=== PATIENT | male | born 1955 | race Caucasian/White ===

== ENCOUNTER 2025-01-12 19:37 | Emergency (ER) | payer MEDICARE ==
[~2025-01-12] VITALS: Ht 182.9 cm; Wt 95.3 kg
[2025-01-12 19:40] VITALS: TEMP 98.3
[2025-01-12 20:00] LABS: BASOPHILS % 0.1 % (0.0-1.0); EOSINOPHILS % 1.3 % (0.0-6.0); LYMPHOCYTES % 13.5 % (18.0-39.1); MONOCYTES % 6.2 % (4.4-11.3); NEUTROPHILS % 78.6 % (38.7-80.0); RED CELL DISTRIBUTION WIDTH 12.7 % (11.7-14.4)
[2025-01-12 20:16] LABS: INR 0.74
[2025-01-12 20:28] LABS: EST GLOMERULAR FILTRATION RATE 68.0 ML/MIN (>=60)
[2025-01-12 23:20] VITALS: PULSE 94; RESP 20
[2025-01-13] MEDS: ONDANSETRON HCL INJ 2MG/ML 2ML 2 MG/ML VIAL IV STA (00:27)
[2025-01-13] MEDS: HYDRALAZINE HCL 20 MG/ML VIAL IV ONE (00:28)
[2025-01-13] MEDS: Morphine 2mg Syringe 2 MG/ML SYR IV ONE (00:29)
[2025-01-13 01:54] VITALS: BP 158/81; PULSE 78; O2SAT 97
[2025-01-13] MEDS ORDERED: IOPAMIDOL 370 MG/ML 100 ML INFUS..BTL INJ ONE (06:46)
== END 2025-01-13 01:50 | disposition other institution (70) ==
LOC: ER 19:41
DX: R10.10 Upper abdominal pain, unspecified (principal); R74.01 Elevation of levels of liver transaminase levels; I10 Essential (primary) hypertension; Z85.46 Personal history of malignant neoplasm of prostate
CPT/HCPCS: 36415; 71045; 74177; 80053; 83690; 83880; 84484; 85025; 85610; 85730; 93005; 99284; J0360; J2270; J2405; J2470; Q9967